=== PATIENT | female | born 1955 | race Caucasian/White ===

== ENCOUNTER → 2020-09-11 10:57 | Outpatient (BNVA) | payer MEDICARE, SELFPAY | PROVIDERS: PCP Internal Medicine; Referring Provider Internal Medicine; Visit Provider Obstetrics & Gynecology | DX: Z76.89 Persons encountering health services in other specified circumstances (principal) ==

== ENCOUNTER 2020-11-26 10:14 | Outpatient (REF) | payer MEDICARE, SELFPAY ==
--- NOTE | 2020-11-26 10:23 | XR_ITS ---
EXAMINATION: XR CHEST CLINICAL INFORMATION: Tobacco use COMPARISON: None TECHNIQUE: 2 views of the chest were obtained. FINDINGS: The cardiac and mediastinal contours are normal. The lungs are clear. There is no pleural effusion or pneumothorax. There are degenerative changes of the spine. XR/XR chest 2V IMPRESSION: Unremarkable examination.
== END 2020-11-26 10:15 | disposition home or self-care (01) ==
LOC: HO.XRAY 10:14
PROVIDERS: PCP Internal Medicine; Visit Provider Internal Medicine
DX: F98.8 Other specified behavioral and emotional disorders with onset usually occurring in childhood and adolescence (principal); Z87.891 Personal history of nicotine dependence
CPT/HCPCS: 71046

== ENCOUNTER 2020-11-27 11:53 | Outpatient (REF) | payer MEDICARE, SELFPAY ==
[2020-11-27 12:40] LABS: MANUAL DIFF FLAG NO
[2020-11-27 12:55] LABS: Basophils Percent Auto 0.8 % (0-2); Eosinophils Absolute Auto 0.1 X10*3/uL (0.0-0.4); Eosinophils Percent Auto 2.3 % (0-4); Hematocrit 40.5 % (37-47); Hemoglobin 13.8 g/dl (12.0-16.0); Imm Gran Abs Auto 0.01 X10*3/uL (0.00-0.03); Imm Gran Pct Auto 0.3 % (0.0-0.4); Lymphocytes Absolute Auto 1.8 X10*3/uL (1.2-4.9); Mean Corpuscular HGB Conc 34.1 g/dl (31.0-35.0); Mean Corpuscular Hemoglobin 32.4 pg (27.0-33.0); Mean Corpuscular Volume 95.1 fL (80-98); Mean Platelet Volume 9.4 fL (9.4-12.3); Monocytes Absolute Auto 0.4 X10*3/uL (0.1-1.2); Monocytes Percent Auto 10.7 % (2-11); Neutrophils Absolute Auto 1.6 X10*3/uL (2.0-8.3); Neutrophils Percent Auto 39.9 % (45-73); Platelet Count 386 X10*3/uL (160-400); Red Blood Count 4.26 X10*6/uL (4.20-5.50); Red Cell Distribution Width 12.2 % (11.0-16.0); White Blood Count 3.9 X10*3/uL (4.8-10.8)
[2020-11-27 13:27] LABS: Alanine Aminotransferase 16 U/L (0-31); Albumin Level 4.4 g/dL (3.5-5.0); Alkaline Phosphatase 71 U/L (39-117); Anion Gap 12 (12-20); Aspartate Amino Transferase 15 U/L (5-31); Bilirubin Total 0.4 mg/dL (0.0-1.0); Blood Urea Nitrogen 14 mg/dL (9-16); Calcium 9.3 mg/dL (8.4-10.2); Carbon Dioxide 29 mmol/L (22-29); Chloride 104 mmol/L (96-108); Cholesterol 168 mg/dL; Estimated Glomerular Filt Rate > 60; Glucose Fasting 99 mg/dL (60-99); Potassium 4.4 mmol/l (3.3-5.1); Sodium 141 mmol/L (135-145); Total Protein 6.5 g/dL (6.5-8.0)
== END 2020-11-27 11:54 | disposition home or self-care (01) ==
LOC: HO.LAB 11:53
PROVIDERS: PCP Internal Medicine; Visit Provider Internal Medicine
DX: Z87.891 Personal history of nicotine dependence (principal)
CPT/HCPCS: 36415; 80053; 82465; 85025

== ENCOUNTER 2021-03-04 08:23 | Outpatient (REF) | payer MEDICARE, SELFPAY ==
--- NOTE | ~2021-03-04 | XR_ITS ---
EXAMINATION: XR HAND, RIGHT CLINICAL INFORMATION: Pain. Osteoarthritis. COMPARISON: Previous x-ray February 2018 TECHNIQUE: PA, lateral, and oblique views of the right hand. FINDINGS: Bone alignment is normal. No fracture or dislocation is seen. There is arthritis at the IP joints and first MCP joint with joint space narrowing and osteophyte formation. Soft tissues are unremarkable. XR/XR hand RT min 3V IMPRESSION: Osteoarthritis at the IP joints and first MCP joint.
--- NOTE | ~2021-03-04 | MM_ITS ---
EXAMINATION: MM SCREENING DIGITAL BREAST TOMOSYNTHESIS, BILATERAL CLINICAL INFORMATION: Screening. Asymptomatic. The lifetime risk of breast cancer based on the Tyrer-Cuzick Model is 8%. COMPARISON: Mammography: 08/04/2019, 06/16/2018, 05/06/2017 TECHNIQUE: Digital mammography is performed in craniocaudal and mediolateral oblique views along with computer-aided detection (CAD). Digital breast tomosynthesis is performed in implant-displaced craniocaudal and implant-displaced mediolateral oblique views along with computer-aided detection (CAD). Synthesized 2D images are generated from the tomosynthesis. Additional left implant displaced MLO view is provided. FINDINGS: There are scattered areas of fibroglandular density (ACR BI-RADS breast composition Category b). There are no significant masses, abnormal calcifications, or other abnormalities. The implant contours are similar to prior studies. Parenchymal pattern is similar to prior exams. There are no significant changes. MM/MM tomosynthesis screen imp BI IMPRESSION: No mammographic evidence of malignancy. ASSESSMENT: BI-RADS 1: Negative RECOMMENDATION: Routine annual mammography screening. This patient's information was entered into a reminder system with a target due date for their next mammogram.
== END 2021-03-04 08:24 | disposition home or self-care (01) ==
LOC: HO.MAMMO 08:23
PROVIDERS: PCP Internal Medicine; Visit Provider Internal Medicine
DX: Z12.31 Encounter for screening mammogram for malignant neoplasm of breast (principal); M19.041 Primary osteoarthritis, right hand
CPT/HCPCS: 73130; 77063; 77067

== ENCOUNTER 2021-11-05 17:17 | Outpatient (REF) | payer MEDICARE, SELFPAY ==
[2021-11-06 08:05] LABS: HBS Num1 16.06 mIU/mL (0-7.99); ~Hepatitis B Surface Antibody REACTIVE (Nonreactive)
[2021-11-07 05:11] LABS: Mumps Virus IgG Antibody >300.00 AU/mL; Rubeola IgG (Measles) >300.00 AU/mL
== END 2021-11-05 17:18 | disposition home or self-care (01) ==
LOC: HO.LAB 17:17
PROVIDERS: PCP Internal Medicine; Visit Provider Internal Medicine
DX: Z02.1 Encounter for pre-employment examination (principal); Z28.3 Underimmunization status
CPT/HCPCS: 36415; 86706; 86735; 86762; 86765; 86787

== ENCOUNTER 2022-10-24 12:25 | Outpatient (REF) | payer MEDICARE, SELFPAY ==
--- NOTE | ~2022-10-24 | MM_ITS ---
EXAMINATION: MM SCREENING DIGITAL BREAST TOMOSYNTHESIS, BILATERAL CLINICAL INFORMATION: Screening. Asymptomatic. Family history breast cancer, mother The lifetime risk of breast cancer based on the Tyrer-Cuzick Model is 8%. COMPARISON: Mammography: 03/04/2021, 08/04/2019 TECHNIQUE: Digital mammography is performed in craniocaudal and mediolateral oblique views along with computer-aided detection (CAD). Digital breast tomosynthesis is performed in implant-displaced craniocaudal and implant-displaced mediolateral oblique views along with computer-aided detection (CAD). Synthesized 2D images are generated from the tomosynthesis. FINDINGS: There are scattered areas of fibroglandular density (ACR BI-RADS breast composition Category b). There are bilateral implants. The implant contours are smooth and similar to prior studies. Parenchymal pattern is similar to prior exams. There is no interval developing density or architectural abnormality, significant mass, or abnormal calcifications. The axilla and skin contours are unremarkable. No significant changes. MM/MM tomosynthesis screen imp BI IMPRESSION: No mammographic evidence of malignancy. ASSESSMENT: BI-RADS 1: Negative RECOMMENDATION: Routine annual mammography screening. This patient's information was entered into a reminder system with a target due date for their next mammogram.
== END 2022-10-24 12:26 | disposition home or self-care (01) ==
LOC: HO.MAMMO 12:25
PROVIDERS: PCP Internal Medicine; Visit Provider Internal Medicine
DX: Z12.31 Encounter for screening mammogram for malignant neoplasm of breast (principal)
CPT/HCPCS: 77063; 77067

== ENCOUNTER 2023-01-31 09:53 | Outpatient (REF) | payer MEDICARE, MEDICAID, SELFPAY ==
[2023-01-31 10:09] LABS: MANUAL DIFF FLAG NO
[2023-01-31 10:36] LABS: Basophils Percent Auto 0.7 % (0-2); Eosinophils Absolute Auto 0.1 X10*3/uL (0.0-0.4); Eosinophils Percent Auto 2.3 % (0-4); Hematocrit 40.6 % (37.0-47.0); Hemoglobin 13.9 g/dl (12.0-16.0); Imm Gran Abs Auto 0.02 X10*3/uL (0.00-0.03); Imm Gran Pct Auto 0.5 % (0.0-0.4); Lymphocytes Absolute Auto 1.9 X10*3/uL (1.2-4.9); Lymphocytes Percent Auto 44.7 % (20-40); Mean Corpuscular HGB Conc 34.2 g/dl (31.0-35.0); Mean Corpuscular Volume 93.5 fL (80.0-98.0); Mean Platelet Volume 9.5 fL (9.4-12.3); Monocytes Absolute Auto 0.5 X10*3/uL (0.1-1.2); Monocytes Percent Auto 12.6 % (2-11); Neutrophils Absolute Auto 1.7 x10*3/uL (2.0-8.3); Neutrophils Percent Auto 39.2 % (45-73); Platelet Count 357 X10*3/uL (160-400); Red Blood Count 4.34 X10*6/uL (4.20-5.50); Red Cell Distribution Width 11.9 % (11.0-16.0); White Blood Count 4.3 X10*3/uL (4.8-10.8)
[2023-01-31 11:00] LABS: Alanine Aminotransferase 17 U/L (0-31); Albumin Level 4.1 g/dL (3.5-5.0); Alkaline Phosphatase 80 U/L (39-117); Anion Gap 13 (12-20); Aspartate Amino Transferase 17 U/L (5-31); Bilirubin Total 0.6 mg/dL (0.0-1.0); Blood Urea Nitrogen 26 mg/dL (9-16); Calcium 9.5 mg/dL (8.4-10.2); Carbon Dioxide 26 mmol/L (22-29); Chloride 106 mmol/L (96-108); Cholesterol 155 mg/dL; Estimated Glomerular Filt Rate > 60; Glucose Fasting 97 mg/dL (60-99); HDL Cholesterol 55 mg/dL; LDL Cholesterol Calculated 85 mg/dl; Potassium 4.4 mmol/L (3.3-5.1); Sodium 141 mmol/L (135-145); Total Protein 6.2 g/dL (6.5-8.0); Triglycerides 79 mg/dL
== END 2023-01-31 09:54 | disposition home or self-care (01) ==
LOC: HO.LAB 09:53
PROVIDERS: PCP Internal Medicine; Visit Provider Internal Medicine
DX: Z00.00 Encounter for general adult medical examination without abnormal findings (principal); M54.9 Dorsalgia, unspecified; R10.9 Unspecified abdominal pain; M25.50 Pain in unspecified joint; Z87.891 Personal history of nicotine dependence
CPT/HCPCS: 36415; 80053; 80061; 85025

== ENCOUNTER 2023-07-24 14:28 | Outpatient (REF) | payer MEDICARE, SELFPAY ==
[2023-07-24 14:46] LABS: MANUAL DIFF FLAG NO
[2023-07-24 15:30] LABS: Basophils Percent Auto 0.5 % (0-2); Eosinophils Absolute Auto 0.1 X10*3/uL (0.0-0.4); Eosinophils Percent Auto 1.5 % (0-4); Hematocrit 40.5 % (37.0-47.0); Hemoglobin 14.1 g/dl (12.0-16.0); Imm Gran Abs Auto 0.02 X10*3/uL (0.00-0.03); Imm Gran Pct Auto 0.4 % (0.0-0.4); Lymphocytes Absolute Auto 2.1 X10*3/uL (1.2-4.9); Lymphocytes Percent Auto 38.3 % (20-40); Mean Corpuscular HGB Conc 34.8 g/dl (31.0-35.0); Mean Platelet Volume 9.1 fL (9.4-12.3); Monocytes Absolute Auto 0.5 X10*3/uL (0.1-1.2); Monocytes Percent Auto 8.8 % (2-11); Neutrophils Absolute Auto 2.8 x10*3/uL (2.0-8.3); Neutrophils Percent Auto 50.5 % (45-73); Platelet Count 439 X10*3/uL (160-400); White Blood Count 5.5 X10*3/uL (4.8-10.8)
[2023-07-24 16:35] LABS: Lactate Dehydrogenase 213 U/L (122-220)
== END 2023-07-24 14:29 | disposition home or self-care (01) ==
LOC: HO.LAB 14:28
PROVIDERS: PCP Internal Medicine; Visit Provider Internal Medicine
DX: Z13.89 Encounter for screening for other disorder (principal)
CPT/HCPCS: 36415; 83615; 85025

== ENCOUNTER 2024-01-01 06:32 | Day surgery (SDC) | payer MEDICARE, SELFPAY ==
[2023-12-30 07:17] VITALS: BMI 23.6
--- NOTE | 2023-12-31 12:18 | HO.ANESPROP2 ---
Documented by User: Keira Hernandez NP 12/31/23 12:19 HPI - Anesthesia Eval Consult details Narrative: 68yo F for Colonoscopy PMFSH Past Medical History Medical History (Updated 12/30/23 @ 07:13 by Gina Aleman RN) HTN (hypertension) ADHD Degenerative disc disease Arthritis Family History Family History Mother Breast cancer Surgical History Surgical History (Updated 01/01/24 @ 06:46 by Sammie Mo) H/O colonoscopy History of cone biopsy of cervix History of breast augmentation History of foot surgery Social History Social History Alcohol intake: current Alcohol intake frequency: holidays/special occasions only Patient Tobacco Use Status: Former Tobacco user Quit Date: 2019 Tobacco use type: Cigarette Years Smoked: 2 Smoked in Last 30 Days: No Use of substances other than those prescribed or required for medical reasons: Yes Substance Use Type Other:: THC edible Substance Use Frequency: Occasionally Are you DNR?: No Advance Directives: No Advance Directives Information Provided: Yes Sexual orientation: Straight/Heterosexual Gender identity: Female Meds Allergies Allergy/AdvReac Type Severity Reaction Status Date / Time penicillin G [Penicillin G] Allergy Severe DIFFICULTY Verified 01/01/24 06:41 BREATHING Home Medications Medication Instructions Recorded Confirmed Last Taken Type dextroamphetamine-amphetamine 10 10 mg PO BID 09/11/20 01/01/24 Unknown History mg tablet (Adderall) ibuprofen 200 mg tablet (Advil) 400 mg PO Q8H 09/11/20 01/01/24 10/09/23 History melatonin 5 mg capsule 5 mg PO DAILY PRN Sleep 09/11/20 01/01/24 Unknown History magnesium oxide 300 mg PO DAILY 12/30/23 01/01/24 Unknown History multivitamin 1 tab PO DAILY 12/30/23 01/01/24 Unknown History vitamin A 2,400 mcg capsule 4,800 mcg PO DAILY 12/30/23 01/01/24 Unknown History vitamin E mixed 1,000 unit capsule 1,000 unit PO DAILY 12/30/23 01/01/24 Unknown History Exam Height,Weight and Vital Signs: Height 5 ft 3 in Weight 60.328 kg Assessment and Plan Assessment Anesthesia Assessment: Chart Reviewed Documented by User: Sid Oro MD 01/01/24 07:30 PMFSH Past Medical History Medical History (Updated 12/30/23 @ 07:13 by Gina Aleman RN) HTN (hypertension) ADHD Degenerative disc disease Arthritis Family History Family History Mother Breast cancer Family history of problems with anesthesia: No Surgical History Surgical History (Updated 01/01/24 @ 06:46 by Sammie Mo) H/O colonoscopy History of cone biopsy of cervix History of breast augmentation History of foot surgery History of Problems with Anesthesia: No Social History Social History Alcohol intake: current Alcohol intake frequency: holidays/special occasions only Patient Tobacco Use Status: Former Tobacco user Quit Date: 2019 Tobacco use type: Cigarette Years Smoked: 2 Smoked in Last 30 Days: No Use of substances other than those prescribed or required for medical reasons: Yes Substance Use Type Other:: THC edible Substance Use Frequency: Occasionally Are you DNR?: No Advance Directives: No Advance Directives Information Provided: Yes Sexual orientation: Straight/Heterosexual Gender identity: Female Meds Allergies Allergy/AdvReac Type Severity Reaction Status Date / Time penicillin G [Penicillin G] Allergy Severe DIFFICULTY Verified 01/01/24 06:41 BREATHING Home Medications Medication Instructions Recorded Confirmed Last Taken Type dextroamphetamine-amphetamine 10 10 mg PO BID 09/11/20 01/01/24 Unknown History mg tablet (Adderall) ibuprofen 200 mg tablet (Advil) 400 mg PO Q8H 09/11/20 01/01/24 10/09/23 History melatonin 5 mg capsule 5 mg PO DAILY PRN Sleep 09/11/20 01/01/24 Unknown History magnesium oxide 300 mg PO DAILY 12/30/23 01/01/24 Unknown History multivitamin 1 tab PO DAILY 12/30/23 01/01/24 Unknown History vitamin A 2,400 mcg capsule 4,800 mcg PO DAILY 12/30/23 01/01/24 Unknown History vitamin E mixed 1,000 unit capsule 1,000 unit PO DAILY 12/30/23 01/01/24 Unknown History Exam Airway Mallampati Class: I TM Dist: >3cm Neck ROM: Full Loose/Missing/Broken Teeth: No Heart: ok Lungs: ok Assessment and Plan Assessment Anesthesia Assessment: Anesthesia Plan Discussed Final Anesthetic Review Family History of Problems with Anesthesia: No History of Problems with Anesthesia: No NPO: Yes ASA Class: II Final Preanesthetic Review: No Changes in Pt Med Stat, Meds/Allgs Chart Reviewed, Consent Obtained/Reviewed and Anes Risks/Benef Reviewed Patient Risk: Low Procedure Risk: Low Anesthetic Plan Anesthetic Plan: MAC: and Agree w/ Assess. and Plan Disposition: Standard PACU
[2024-01-01 06:46] VITALS: BP 111/75; PULSE 57; RESP 16; TEMP 36.5; O2SAT 100; BMI 23.5
[2024-01-01] MEDS: Lactated Ringers 1,000 ML 100 ML IVCONT (07:04)
--- NOTE | 2024-01-01 07:31 | P.HPSUR_ITS ---
Pre-Procedural Eval Section A - 24 Hr Update-Section A only Date of Service: 01/01/24 Section B - Complete if H&P > 30 days Chief Complaint: screening Details of Present Illness: see H&P no changes Relevant Family History (Specify if Yes): No Relevant Social History: None Present Medications: see Short Stay Collaborative assessment Medical History: No relevant PMH History of Previous Operations: No relevant previous surgery Allergies: Allergies Allergy/AdvReac Type Severity Reaction Status Date / Time penicillin G [Penicillin G] Allergy Severe DIFFICULTY Verified 01/01/24 06:41 BREATHING Review of Systems Sugical H&P ROS: Negative: Constitution, Cardiovascular, Respiratory, Neurological, Psychiatric, Hem-Onc, Allergic/Immunologic, Gastrointestinal, Genitourinary, Musculoskeletal, Integumentary, Endocrine and Eyes/Ears/N ose/Throat Exam Surgical H&P Exam: Normal: HEENT, Normal: Heart, Normal: Lungs, Normal: Extremities, Normal: Abdomen, Normal: Skin and Normal: Neurological Plan Diagnosis/Plan: Unchanged I have reviewed the history and physical and performed a pertinent physical examination on my patient. No changes have occurred unless specified. Time Spent With Patient Time: Total time managing care of this patient today ____ minutes.
[2024-01-01 08:10] VITALS: BP 83/47; PULSE 43; RESP 16; TEMP 37; O2SAT 96
--- NOTE | 2024-01-01 08:28 | OP_ITS ---
DATE OF SERVICE: 01/01/2024 SURGEON: Jesse Plummer MD INDICATIONS: Colon cancer screening. PREOPERATIVE DIAGNOSIS: POSTOPERATIVE DIAGNOSIS: PROCEDURE PERFORMED: Colonoscopy to the terminal ileum. ESTIMATED BLOOD LOSS: COMPLICATIONS: ANESTHESIA: Monitored anesthesia care. ASSISTANTS: SPECIMENS: DESCRIPTION OF PROCEDURE: A history and physical performed. The risks and benefits of the procedure were explained to the patient. Informed consent was obtained. The patient was placed in the left lateral decubitus position. A digital rectal exam was performed and was found to be normal. The Olympus pediatric video colonoscope was introduced into the rectum and advanced to the cecum. The cecum was identified by transillumination, palpation, and identification of ileocecal valve. Examination was performed. The scope was removed. She tolerated the procedure well and was turned recovery room in stable condition. FINDINGS: The terminal ileum was not examined. The visualized colonic mucosa was normal. The quality of prep was excellent. No polyps were identified. Retroflexed examination was normal. IMPRESSION: Normal colonoscopy. RECOMMENDATION: 1. Follow up as needed. 2. Repeat colonoscopy is recommended in 5 years because of family history of colon cancer. MD JUNI Wellington/HOA / [phone]
[2024-01-01 08:32] VITALS: BP 98/65; PULSE 51; RESP 18; TEMP 36.1; O2SAT 99
== END 2024-01-01 08:50 | disposition home or self-care (01) ==
PROVIDERS: PCP Internal Medicine; Visit Provider Internal Medicine Gastroenterology
PROC: 0DJD8ZZ Inspection of Lower Intestinal Tract, Via Natural or Artificial Opening Endoscopic (ICD-10-PCS; CPT 45378; principal; 2024-01-01 07:30)
DX: Z12.11 Encounter for screening for malignant neoplasm of colon (principal); Z80.0 Family history of malignant neoplasm of digestive organs; Z86.010 Personal history of colon polyps; K59.00 Constipation, unspecified; I10 Essential (primary) hypertension; F90.9 Attention-deficit hyperactivity disorder, unspecified type; Z79.899 Other long term (current) drug therapy; Z88.0 Allergy status to penicillin; Z98.86 Personal history of breast implant removal; Z87.891 Personal history of nicotine dependence
CPT/HCPCS: G0105; J2704

== ENCOUNTER 2024-03-22 08:07 | Outpatient (REF) | payer MEDICARE, SELFPAY ==
--- NOTE | ~2024-03-22 | MM_ITS ---
EXAMINATION: MM SCREENING DIGITAL BREAST TOMOSYNTHESIS, BILATERAL WITH BREAST IMPLANTS. CLINICAL INFORMATION: Screening. Asymptomatic. COMPARISON: Mammography: This study is compared with prior mammograms dating back to 2019. TECHNIQUE: Digital mammography is performed in craniocaudal and mediolateral oblique views along with computer-aided detection (CAD). Digital breast tomosynthesis is performed in implant-displaced craniocaudal and implant-displaced mediolateral oblique views along with computer-aided detection (CAD). Synthesized 2D images are generated from the tomosynthesis. FINDINGS: There are scattered areas of fibroglandular density (ACR BI-RADS breast composition Category b). There are mammographically intact, retroglandular, silicone breast implants. There are no significant masses, abnormal calcifications, or other abnormalities. MM/MM tomosynthesis screen imp BI IMPRESSION: There are no significant changes from prior study. ASSESSMENT: BI-RADS BI-RADS 1 - Negative RECOMMENDATION: Routine annual mammography screening. 1 year F/U This patient's information was entered into a reminder system with a target due date for their next mammogram.
== END 2024-03-22 08:08 | disposition home or self-care (01) ==
LOC: HO.MAMMO 08:07
PROVIDERS: PCP Internal Medicine; Visit Provider Internal Medicine
DX: Z12.31 Encounter for screening mammogram for malignant neoplasm of breast (principal)
CPT/HCPCS: 77063; 77067

== ENCOUNTER → 2024-03-22 08:15 | Outpatient (BNV) | payer MEDICARE, SELFPAY | PROVIDERS: PCP Internal Medicine; Visit Provider Radiology Diagnostic Radiology | DX: Z12.31 Encounter for screening mammogram for malignant neoplasm of breast (principal) | CPT/HCPCS: 77063; 77067 ==

== ENCOUNTER 2024-07-19 10:26 | Outpatient (AMB) | payer MEDICARE, SELFPAY ==
[2024-07-19 10:38] VITALS: BP 144/90; PULSE 60; O2SAT 98; BMI 24.6
--- NOTE | 2024-07-19 10:38 | MHC.OFFVIS ---
Vital Signs 07/19/24 10:38 Height 5 ft 2.5 in Weight 136 lb 10.986 oz BMI 24.6 BP 144/90 H Blood Pressure Location Lt brachial Position Sitting Pulse 60 Pulse Source Pulse Oximeter Pulse Oximetry (%) 98 Oxygen Delivery Method Room Air Intake Visit Reasons: hx of tobacco use Equipment Cleaner And Tester Required: No Allergies penicillin G [Penicillin G] Allergy (Severe, Verified 07/19/24 10:40) DIFFICULTY BREATHING HPI Comments Details: The patient is here for pulmonary evaluation. The patient is a maile 68 year woman with a history of smoking who presents with minimal symptoms. She had been having a cough and she did have a chest x-ray and there was a question of COPD and history. Her last chest x-ray that was back in 2020. I did personally reviewed without any significant findings. The patient does not use any inhalers in time. She does walk on a regular basis. Although she used to run now is difficult for her to run. Therefore, will be reasonable to perform pulmonary function studies specially with her decreasing exercise capacity and also wears smoking history. The patient does not benefit from inhalers since time although we will reassess after me pulmonary function studies. Will also plan to repeat a chest x-ray at this time. Otherwise the patient is without complaints. [facility] Medical History (Updated 07/19/24 @ 21:27 by Som Riojas MD) Dyspnea Tobacco dependence HTN (hypertension) ADHD Degenerative disc disease Arthritis Surgical History (Updated 01/01/24 @ 06:46 by Sammie Mo RN) H/O colonoscopy History of cone biopsy of cervix History of breast augmentation History of foot surgery Family History Mother Breast cancer Social History Alcohol intake: current Alcohol intake frequency: holidays/special occasions only Patient Tobacco Use Status: Former Tobacco user Tobacco use type: Cigarette Years Smoked: 2 Sexual orientation: Straight/Heterosexual Gender identity: Female Review of Systems Const Denies fever(s) ENT Reports no additional complaints Card Denies chest pain and Reports dyspnea on exertion Resp Reports dyspnea on exertion and Denies wheezing GI Reports no additional complaints Musc Reports no additional complaints Skin/Breast Denies rash Aller/Immun Denies wheezing Physical Exam Vital Signs: Last Vital Signs Pulse 60 07/19/24 10:38 BP 144/90 H 07/19/24 10:38 Pulse Ox 98 07/19/24 10:38 Oxygen Delivery Method Room Air 07/19/24 10:38 BMI result Body Mass Index 24.6 Const General: comfortable HEENT Head: Yes normocephalic Neck Neck: Yes supple Chest Chest palpation & inspection: normal inspection of the chest Resp Effort & Inspection: normal respiratory effort Auscultation: diminished lung sounds Cardio Heart sounds: S1 normal heart sound present and S2 normal heart sound present GI Palpation (GI): Soft to palpation Skin General skin exam: no rashes or lesions noted Extrem General: Yes no clubbing, cyanosis or edema Assessment & Plan Assessment & Plan (1) Dyspnea: Code(s): R06.00 - Dyspnea, unspecified Category: Medical Qualifiers: Dyspnea type: dyspnea on exertion Qualified Code(s): R06.09 - Other forms of dyspnea (2) Tobacco dependence: Code(s): F17.200 - Nicotine dependence, unspecified, uncomplicated Category: Medical Plan PFTs LDCT referral F/U 3-4 months Orders: Orders PFT pulmonary function test Today R06.09 - Other forms of dyspnea Coding Level of Care Code New Pt Level 4 (73409) Diagnoses Dyspnea on exertion R06.09 Dyspnea type: dyspnea on exertion Tobacco dependence F17.200 Time Spent (min) 30
== END 2024-07-19 10:53 | disposition home or self-care (01) ==
PROVIDERS: PCP Internal Medicine; Visit Provider Hospitalist
DX: R06.09 Other forms of dyspnea (principal); F17.200 Nicotine dependence, unspecified, uncomplicated
CPT/HCPCS: 99204

== ENCOUNTER → 2024-07-19 10:26 | Outpatient (BNVA) | payer MEDICARE, SELFPAY | PROVIDERS: PCP Internal Medicine; Visit Provider Hospitalist | DX: R06.09 Other forms of dyspnea (principal); F17.210 Nicotine dependence, cigarettes, uncomplicated | CPT/HCPCS: 99202 ==

== ENCOUNTER 2024-08-09 13:05 | Outpatient (REF) | payer MEDICARE, SELFPAY ==
[2024-08-09 13:23] LABS: MANUAL DIFF FLAG NO
[2024-08-09 14:01] LABS: Basophils Percent Auto 0.6 % (0-2); Eosinophils Absolute Auto 0.1 X10*3/uL (0.0-0.4); Eosinophils Percent Auto 1.3 % (0-4); Hematocrit 40.7 % (37.0-47.0); Imm Gran Abs Auto 0.02 X10*3/uL (0.00-0.03); Imm Gran Pct Auto 0.4 % (0.0-0.4); Lymphocytes Absolute Auto 1.6 X10*3/uL (1.2-4.9); Lymphocytes Percent Auto 34.7 % (20-40); Mean Corpuscular HGB Conc 34.4 g/dl (31.0-35.0); Mean Corpuscular Hemoglobin 32.2 pg (27.0-33.0); Mean Corpuscular Volume 93.6 fL (80.0-98.0); Mean Platelet Volume 9.5 fL (9.4-12.3); Monocytes Absolute Auto 0.5 X10*3/uL (0.1-1.2); Monocytes Percent Auto 9.6 % (2-11); Neutrophils Absolute Auto 2.5 x10*3/uL (2.0-8.3); Neutrophils Percent Auto 53.4 % (45-73); Platelet Count 371 X10*3/uL (160-400); Red Blood Count 4.35 X10*6/uL (4.20-5.50); Red Cell Distribution Width 12.2 % (11.0-16.0); White Blood Count 4.7 X10*3/uL (4.8-10.8)
[2024-08-09 14:29] LABS: Alanine Aminotransferase 16 U/L (0-31); Albumin Level 4.2 g/dL (3.5-5.0); Alkaline Phosphatase 72 U/L (39-117); Anion Gap 11 (12-20); Aspartate Amino Transferase 14 U/L (5-31); Bilirubin Total 0.5 mg/dL (0.0-1.0); Blood Urea Nitrogen 18 mg/dL (9-16); Calcium 9.7 mg/dL (8.4-10.2); Carbon Dioxide 28 mmol/L (22-29); Chloride 108 mmol/L (96-108); Cholesterol 167 mg/dL (<200); Estimated Glomerular Filt Rate > 60; Glucose Fasting 90 mg/dL (60-99); HDL Cholesterol 61 mg/dL (>40); LDL Cholesterol Calculated 86 mg/dL (<100); Potassium 4.3 mmol/L (3.3-5.1); Sodium 143 mmol/L (135-145); Total Protein 6.8 g/dL (6.5-8.0); Triglycerides 102 mg/dL (<150)
[2024-08-09 14:44] LABS: Vitamin D 25-OH Total 51.6 ng/mL (>30)
== END 2024-08-09 13:06 | disposition home or self-care (01) ==
LOC: HO.LAB 13:05
PROVIDERS: PCP Internal Medicine; Visit Provider Internal Medicine
DX: I25.10 Atherosclerotic heart disease of native coronary artery without angina pectoris (principal); Z87.891 Personal history of nicotine dependence; Z86.0100 Personal history of colon polyps, unspecified
CPT/HCPCS: 36415; 80053; 80061; 82306; 85025

== ENCOUNTER 2025-02-23 13:59 | Outpatient (AMB) | payer MEDICARE, SELFPAY ==
[2025-02-23 14:03] VITALS: BP 138/90; PULSE 60; RESP 16; TEMP 36.4; O2SAT 99; BMI 24.3
--- NOTE | 2025-02-23 14:03 | MHC.PC.OV ---
Vital Signs 02/23/25 14:03 Height 5 ft 2.5 in Weight 135 lb BMI 24.3 BP 138/90 H Respiration 16 Pulse 60 Pulse Source Pulse Oximeter Temp 97.6 F Temp Source Temporal Artery Scan Pulse Oximetry (%) 99 Oxygen Delivery Method Room Air Intake Visit Reasons: Routine Geodetic Surveyor Required: No Accompanied by: Self / Same As Patient Allergies penicillin G [Penicillin G] Allergy (Severe, Verified 02/23/25 14:03) DIFFICULTY BREATHING Tobacco use date assessed: 02/23/25 Fall risk assessment: No Falls in past year Last assessed Fall Risk: 02/23/25 Dental Screening Dental Screen Date: 02/23/25 Did you have a dental visit in the last 12 months?: Yes Did you have a dental problem in the last 6 months where you did not have access to dental care?: No Was dental information given to patient?: Patient has dentist HPI HPI Comments History of Present Illness Details the patient is a 69 year old female with a past medical history of ADD, anxiety, insomnia, tobacco use, colon polyps, back pain history of breast implant presenting for follow up. Last seen Aug BH: On adderall 10mg twice daily would like to increased to 15mg bid. History of tobacco use. Saw pulmonary but does not need follow up History of bilateral breast implants. Is having a lot of breast pain, low back pain. Her breasts are now size G Colonoscopy 12/2023-5 years. Family history of colon cancer Mammo: UTD. History of bilateral breast implants. ROS CONSTITUTIONAL: Denies weight loss, fever and chills. HEENT: Denies changes in vision and hearing. RESPIRATORY: Denies SOB and cough. CV: Denies palpitations and CP GI: Denies abdominal pain, nausea, vomiting and diarrhea. : Denies dysuria and urinary frequency. MSK: Denies new myalgia and joint pain. SKIN: Denies rash and pruritus. NEUROLOGICAL: Denies headache PSYCHIATRIC: Denies recent changes in mood. PHYSICAL EXAM: GENERAL: Alert and oriented x 3. NAD EYES: EOMI. Anicteric. HENT: Moist mucous membranes. No scleral icterus. No cervical lymphadenopathy. LUNGS: Clear to auscultation bilaterally. CARDIOVASCULAR: Regular rate and rhythm. No murmur. No JVD. ABDOMEN: Soft, non-tender +bs EXTREMITIES: No edema. Non-tender. SKIN: No rashes or lesions. Warm. NEUROLOGIC: No focal neurological deficits. CN II-XII grossly intact PSYCHIATRIC: Cooperative. Appropriate mood and affect ON LICENSE OF [facility] Medical History Dyspnea Tobacco dependence HTN (hypertension) ADHD Degenerative disc disease Arthritis Surgical History H/O colonoscopy (~01/01/24) History of cone biopsy of cervix History of breast augmentation History of foot surgery Family History Mother Breast cancer Social History Housing: House Alcohol intake: current Alcohol intake frequency: holidays/special occasions only Patient Tobacco Use Status: Former Tobacco user Tobacco use type: Cigarette Years Smoked: 2 service: No Current occupational status: employed Sexual orientation: Straight/Heterosexual Gender identity: Female Cognitive needs: No Hearing needs: No Vision needs: Yes (rx contacts/glasses) Questionnaire PHQ-9 Over the last 2 weeks, how often have you been bothered by any of the following problems? 1. Little interest or pleasure in doing things: not at all 2. Feeling down, depressed, or hopeless: not at all 3. Trouble falling or staying asleep, or sleeping too much: not at all 4. Feeling tired or having little energy: not at all 5. Poor appetite or overeating: not at all 6. Feeling bad about yourself - or that you are a failure or have let yourself or your family down: not at all 7. Trouble concentrating on things, such as reading the newspaper or watching television: not at all 8. Moving or speaking so slowly that other people could have noticed. Or the opposite - being so fidgety or restless that you have been moving around a lot more than usual: not at all 9. Thoughts that you would be better off or of hurting yourself in some way: not at all Total score: 0 Depression Screening Interpretation: Negative Depression Screening Done: Yes 75351 - PHQ-9 Billing: Yes Source: Developed by Drs. Eugene Salmeron, Olamide Vito Jones and colleagues, with an educational nancy from [email or web address]. Thrive Questionnaire Date Thrive assessed: 02/23/25 I am a: Patient What is your living situation today?: I have a steady place to live Within the past 12 months, did the food you bought not last and you didn't have the money to get more?: Never true Within the past 12 months, did you worry whether your food would run out before you got money to buy more?: Never true Do you have trouble paying for medicines?: No Do you have trouble getting transportation to medical appointments?: No Do you have trouble paying your heating and electricity bill?: No Do you have trouble taking care of your child, family member or friend?: No Do you have trouble with day-to-day activities such as bathing, preparing meals, shopping, managing finances, etc.?: No Are you currently unemployed and looking for a job?: No Are you interested in more education?: No Please select the resources that you would like help with: None THRIVE Score: 0 AUDIT C Alcohol Use Questionnaire (AUDIT-C) 1. How often do you have a drink containing alcohol?: Monthly or less 2. How many drinks containing alcohol do you have on a typical day when you are drinking?: 1 or 2 3. How often do you have six or more drinks on one occasion?: Never Total Score: 1 MIGNON-7 AMB Questionnaire MIGNON-7 Date MIGNON - 7 assessed: 02/23/25 Feeling nervous, anxious, or on edge: 0 = Not at all Not being able to stop or control worryin = Not at all Worrying too much about different things: 0 = Not at all Trouble relaxin = Not at all Being so restless that it is hard to sit still: 0 = Not at all Becoming easily annoyed or irritable: 0 = Not at all Feeling afraid as if something awful might happen: 0 = Not at all Total MIGNON-7 score (0-4 normal; 5-9 mild; 10-14 moderate; 15-21 severe): 0 Source: Developed by Drs. Eugene Salmeron, Vito Bray and colleagues, with an educational nancy from [email or web address]. Physical exam (Primary Care) Vital Signs: Last Vital Signs Temp 97.6 F 02/23/25 14:03 Pulse 60 02/23/25 14:03 Resp 16 02/23/25 14:03 BP 138/90 H 02/23/25 14:03 Pulse Ox 99 02/23/25 14:03 Oxygen Delivery Method Room Air 02/23/25 14:03 BMI result Body Mass Index 24.3 Tobacco/Smoking Status: Tobacco use Status Tobacco use date assessed 02/23/25 02/23/25 14:06 Patient Tobacco Use Status Former Tobacco user 02/23/25 14:06 Tobacco use type Cigarette 02/23/25 14:06 PHQ-9: PHQ-9 Score PHQ-9: Total score 0 02/23/25 14:23 Depression Screening Interpretation: Negative Thrive Assessment: Date of Thrive Assessment Date Thrive assessed 02/23/25 02/23/25 14:06 Coding Level of Care Code New Pt Level 4 (47192) Diagnoses Attention deficit disorder, unspecified type F98.8 Attention deficit type: unspecified type Primary hypertension I10 Hypertension type: primary hypertension History of breast implant Z98.82 Additional Codes PHQ-9 - 63435 - PHQ-9 Billing: Yes ([id number]) Assessment & Plan Assessment & Plan (1) ADD (attention deficit disorder): Code(s): F98.8 - Other specified behavioral and emotional disorders with onset usually occurring in childhood and adolescence Category: Medical Qualifiers: Attention deficit type: unspecified type Qualified Code(s): F98.8 - Other specified behavioral and emotional disorders with onset usually occurring in childhood and adolescence (2) HTN (hypertension): Code(s): I10 - Essential (primary) hypertension Category: Medical Qualifiers: Hypertension type: primary hypertension Qualified Code(s): I10 - Essential (primary) hypertension (3) History of breast implant: Code(s): Z98.82 - Breast implant status Category: Surgical Plan 69 year old to establish care ADD-increase adderall 15 bid HTN-stable off medications consider breast reduction Orders: Orders Complete Blood Count Auto Diff 02/23/25 F98.8 - Other specified behavioral and emotional disorders with onset usually occurring in childhood and adolescence, I10 - Essential (primary) hypertension, R06.09 - Other forms of dyspnea, Z98.82 - Breast implant status Comprehensive Met. Panel 02/23/25 F98.8 - Other specified behavioral and emotional disorders with onset usually occurring in childhood and adolescence, I10 - Essential (primary) hypertension, R06.09 - Other forms of dyspnea, Z98.82 - Breast implant status Lipid Panel 02/23/25 F98.8 - Other specified behavioral and emotional disorders with onset usually occurring in childhood and adolescence, I10 - Essential (primary) hypertension, R06.09 - Other forms of dyspnea, Z98.82 - Breast implant status TSH reflex Free T4 02/23/25 F98.8 - Other specified behavioral and emotional disorders with onset usually occurring in childhood and adolescence, I10 - Essential (primary) hypertension, R06.09 - Other forms of dyspnea, Z98.82 - Breast implant status Medications: New dextroamphetamine-amphetamine 15 mg (Adderall) administer doses at least 4-6 hours apart; Partial Fill upon patient request. ok to fill early 15 mg PO BID 120 tabs 0RF 60 days Discontinued dextroamphetamine-amphetamine 10 mg (Adderall) administer doses at least 4-6 hours apart Discontinued Reason: Doctor's Order 10 mg PO BID 60 days 120 tabs 0RF F98.8 - Other specified behavioral and emotional disorders with onset usually occurring in childhood and adolescence
--- OUTSIDE RECORDS SUMMARY | 2025-02-23 17:04 | XMS_ITS ---
Author Organization [facility] Address [address] [place] [address] Care Team Providers Care Rf Engineer Name Role Phone Gino GUERRIER, Nathanael Primary Care Provider Jesse Moy Jr Unavailable REASON FOR VISIT screening Encounters Encounter Location Date Provider Diagnosis [facility] [address] [place], [place] [id number] 01/01/2024 Jesse Plummer Jr Encounter for screening colonoscopy Z12.11 and Family history of colon cancer Z80.0 Assessments Encounter Date Diagnosis (ICD Code) Assessment Notes Treatment Notes Treatment Clinical Notes Section Notes 01/01/2024 Encounter for screening colonoscopy (ICD-10 - Z12.11) 01/01/2024 Family history of colon cancer (ICD-10 - Z80.0) Plan Of Treatment No Information Progress Notes * ANKIT ECKERTDOB:1955 ( 69 yo F)Acc No.[id number]:01/01/2024 COLON WITH MAC Patient:?ANKIT ECKERT Provider:?Jesse Plummer MD :1955???Age:68 Y???Sex:Female D ate:01/01/2024 Address:[address] [place], [place] [address] [address] [place] Pcp:Nathanael Christian MD Subjective: * Chief Complaints: * ???1. Screening. * Medical History:? Objective: * Vitals:? Assessment: * Assessment: 1.?Encounter for screening c olonoscopy - Z12.11 (Primary)???2.?Family history of colon cancer - Z80.0??? Plan: * Treatment: * Procedure Codes:?40572 DIAGN OSTIC COLONOSCOPY, G0105 COLOREC CANCR SCR; COLNSCPY HI RISK * * The named appointment provid er may or may not be the originator of this progress note, and it is not deemed complete until electronically signed by the appointment provider. Sign off status: Pending * Provider:?Jesse Plummer MD Date:?0 01/01/2024 Generated for Ramone edmondson/Shiela/Velsmitting on:?02/23/2025 05:04 PM EDT
--- OUTSIDE RECORDS SUMMARY | 2025-02-23 17:04 | XMS_ITS | Patient Health Record ---
Author Organization [facility] Address [address] [place] [address] Care Team Providers Care Fruit Raiser Name Role Phone Nathanael Christian MD Primary Care Provider Jesse Moy Jr Unavailable Allergies Allergen (clinical drug ingredient) Drug/Non Drug Allergy documented on EMR Reaction Allergy Type Onset Date Status penicillin G Penicillin G Sodium Unknown Drug Allergy Active Reason For Referral No Information Medications Medication SIG (Take, Route, Frequency, Duration) Notes Start Date End Date Status Magnesium 300 MG 1 capsule with a patricia l Orally Once a day for 30 day(s) Active Vitamin A 2400 MCG (8000 UT) 2 capsules with food or milk Orally Once a day for 30 day(s) Active Vitamin E 1000 UNIT as directed Orally Active Adderall 10 MG 1 tablet Orally Twic e a day Active Multivitamin Adult - as directed Orally Active Hair Skin Nails - as directed Orally Active Immunizations Vaccine Route Administration Date Status Comme nts Influenza Unknown 08/04/2019 Refused Influenza Unknown 10/28/2023 Refused Social History Tobacco Use: Social History Observation Description Date Details (start date - stop date) Former Smoker NA - NA Tobacco Use/Smoking Question Answer Notes Patient is a former smoker Alcohol Screen Question Answer Notes Did you have a drink contain ing alcohol in the past year? Yes How often did you have a dri nk containing alcohol in the past year? Never (0 point) How many drinks did you have on a typical day when you were drinking in the past year? 1 or 2 drinks (0 point) How often did you have 6 or more drinks on one occasion in the past year? Never (0 point) Points 0 Interpretation Negative Problems Problem Type SNOMED Code ICD Code Onset Dates Problem Status W/U Status Risk Notes Problem 192376630 Colon cancer screening (Z12.11) Active confirmed Problem 72781942 Constipation, unspecified constipation type (K59.00) Active confirmed Problem 783320088 Long-term curren t use of high risk medication other than anticoagulant (Z79.899) Active confirmed Problem 85178177 Incontinence of feces, unspecified fecal incontinence type (R15.9) Active confirmed Plan Of Treatment Future Test Test Name Order Date COLONOSCOPY 08/04/2019 COLONOSCOPY 10/28/2023 Insurance Providers Payer Name Payer Address Payer Phone Subscriber Number Group Number Insured Name Patient Relationship to Insured Coverage Start Date Coverage End Date [facility] Medicare Advantage Plan [address] [address] [place] [address] [id number] ANKIT ECKERT Self - patient is the insured Medical (General) History Medical History History ICD Code ADHD Hypertension, stress related Colonoscopy 11/16/19, no polyp s, previous history of tubular adenomas, three-year followup due to prep limitations. Surgical History Surgery Date(Month/Year) breast implant 2008 bunions right and right and left 95
--- OUTSIDE RECORDS SUMMARY | 2025-02-23 17:05 | XMS_ITS ---
Author Organization [facility] Address [address] [place] [address] Care Team Providers Care Blow Molding Machine Operator Name Role Phone Nathanael Christian MD Primary Care Provider Jesse Moy Jr Unavailable Allergies Allergen (clinical drug ingredient) Drug/Non Drug Allergy documented on EMR Reaction Allergy Type Onset Date Status penicillin G Penicillin G Sodium Unknown Drug Allergy Active REASON FOR VISIT Patient presents today for a screening colonoscopy Medications Medication SIG (Take, Route, Frequency, Duration) Notes Start Date End Date Status Vitamin E 1000 UNIT as directed Orally Active Adderall 10 MG 1 tablet Orally Twic e a day Active Multivitamin Adult - as directed Orally Active Hair Skin Nails - as directed Orally Active Magnesium 300 MG 1 capsule with a patricia l Orally Once a day for 30 day(s) Active Vitamin A 2400 MCG (8000 UT) 2 capsules with food or milk Orally Once a day for 30 day(s) Active Immunizations Vaccine Route Administration Date Status Comme nts Influenza Unknown 10/28/2023 Refused Social History Tobacco [...] Problem Status W/U Status Risk Notes Problem 72460313 Constipation, unspecified constipation type (K59.00) Active confirmed Problem 25750380 Incontinence of feces, unspecified fecal incontinence type (R15.9) Active confirmed Vital Signs Temperature 97.1 degrees Fahrenheit 10/28/20 23 Blood pressure systolic 000 mm Hg 10/28/20 23 Blood pressure diastolic 00 mm Hg 023 Height 63 in 10/28/2023 Weight 133 lb 6 oz lbs 10/28/2023 BMI 23.62 kg/m2 10/28/2023 Encounters Encounter Location Date Provider Diagnosis [facility] [address] [place] [address] 10/28/2023 Jesse Plummer Jr Colon cancer screening Z12.11 ; Constipation, unspecified constipation type K59.00 ; Incontinence of feces, unspecified fecal incontinence type R15.9 and Long-term current use of high risk medication other than anticoagulant Z79.899 Assessments Encounter Date Diagnosis (ICD Code) Assessment Notes Treatment Notes Treatment Clinical Notes Section Notes 10/28/2023 Colon cancer screening (ICD-10 - Z12.11) We discussed constipation and rectal leakage today. She may be having a little bit a postobstructive issues with her chronic constipation. We recommended a high-fiber diet and MiraLax as needed. She will be scheduled for colonoscopy for further evaluation. She is aware risks and benefits and agrees to proceed. She is advised to stop supplements one week before the procedure. 10/28/2023 Constipation, unspecified constipation type (ICD-10 - K59.00) Colonoscopy material was printed We discussed constipation and rectal leakage today. She may be having a little bit a postobstructive issues with her chronic constipation. We recommended a high-fiber diet and MiraLax as needed. She will be scheduled for colonoscopy for further evaluation. She is aware risks and benefits and agrees to proceed. She is advised to stop supplements one week before the procedure. 10/28/2023 Incontinence of feces, unspecified fecal incontinence type (ICD-10 - R15.9) We discussed constipation and rectal leakage today. She may be having a little bit a postobstructive issues with her chronic constipation. We recommended a high-fiber diet and MiraLax as needed. She will be scheduled for colonoscopy for further evaluation. She is aware risks and benefits and agrees to proceed. She is advised to stop supplements one week before the procedure. 10/28/2023 Long-term current use of high risk medication other than anticoagulant (ICD-10 - Z79.899) We discussed constipation and rectal leakage today. She may be having a little bit a postobstructive issues with her chronic constipation. We recommended a high-fiber diet and MiraLax as needed. She will be scheduled for colonoscopy for further evaluation. She is aware risks and benefits and agrees to proceed. She is advised to stop supplements one week before the procedure. Plan Of Treatment Treatment Notes Assessment Notes Constipation, unspecified constipation t ype Colonoscopy material was printed Future Test Test Name Order Date COLONOSCOPY 10/28/2023 Progress Notes * ANKIT ECKERTDOB:1955 ( 68 yo F)Acc No.[id number]:10/28/2023 Progress Notes Patient:?ANKIT ECKERT Provider:?Jesse Plummer MD :1955???Age:68 Y???Sex:Female D ate:10/28/2023 Address:[address] [place] [address] [address], [id number] Pcp:Nathanael Christian MD Subjective: * Chief Complaints: * ???1. Patient presents today for a screening colonoscopy. * HPI: ???New symptom(s):? Trip is a pleasant 68-year-old woman seen today in consultation for her preoperative colonoscopy visit. She has no complaints of rectal bleeding. She does get constipated, typically with stress. Over the past year she's noted some liquid leakage with her bowel movements. She has not had to use a pad. She has no rectal bleeding. She has a family history of colon cancer in several primary relatives. ?Her last colonoscopy in November 2019 was limited and three-year followup of a 2 day prep was recommended because of the lack of complete visibility. We reviewed this today. * ROS:?General/Constitutional:?Change in appetite?denies.?Fatigue?denies.?ENT:?Patient denies?difficulty swallowing.?Respiratory:?Patient denies?shortness of breath.?Cardiovascular:?Patient denies?chest pain.?Gastrointestinal:?Comments?See HPI for details.?Genitourinary:?Difficulty urinating?denies.?Incontinence?denies.?Musculoskeletal:?Patient denies?muscle aches.?Skin:?Patient denies?pruritis.?Neurologic:?Patient denies?low back pain.?Psychiatric:?Patient denies?mental or physical abuse.? * Medical History:?ADHD, Hyper tension, stress related, Colonoscopy 11/16/19, no polyps, previous history of tubular adenomas, three-year followup due to prep limitations.. * Surgical History:?breast imp lant 2007, bunions right and right and left . * Hospitalization/Major Diagno stic Procedure:?Denies Past Hospitalization. * Family History:?Father: dece ased, diagnosed with HTN (hypertension).?Mother: alive, diagnosed with HTN (hypertension), Colon polyps.?Paternal Grand Father: , diagnosed with Colon cancer.?Siblings: alive, diagnosed with Colon cancer.? Sister had necrosis of her stomach and passed a year ago. * Social History:?Tobacco Use:?Tobacco Use/Smoking?Patient is a?former smoker.?Drugs/Alcohol:?Alcohol Screen?Did you have a drink containing alcohol in the past year??Yes,?How often did you have a drink containing alcohol in the past year??Never (0 point),?How many drinks did you have on a typical day when you were drinking in the past year??1 or 2 drinks (0 point),?How often did you have 6 or more drinks on one occasion in the past year??Never (0 point),?Points?0,?Interpretation?Negative.?Miscellaneous:?Marital status: . 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 * Medications:?Taking Magnesiu m 300 MG Capsule 1 capsule with a meal Orally Once a day, Taking Vitamin A 2400 MCG (8000 UT) Capsule 2 capsules with food or milk Orally Once a day, Taking Vitamin E 1000 UNIT Capsule as directed Orally , Taking Adderall 10 MG Tablet 1 tablet Orally Twice a day, Taking Multivitamin Adult - Tablet as directed Orally , Taking Hair Skin Nails - Capsule as directed Orally , Discontinued Turmeric 500 MG Capsule as directed Orally , Discontinued MiraLax (colon prep) 8.3 ounce ((238) grams mixed with Gatorade or Crystal Light orally begin at 5:00 p.m. the day before the procedure, Medication List reviewed and reconciled with the patient * Allergies:?Penicillin G Sodi um. Objective: * Vitals:?Wt: 133 lb 6 oz, Ht: 63 in, BMI:23.62 Index, BP: 000/00 mm Hg, Temp: 97.1. * Examination: ???General Examination: ?GENERAL APPEARANCE:?in no acute distress.?HEAD:?normocephalic.?EYES:?sclera non-icteric.?ORAL CAVITY:?mucosa moist.?NECK/THYROID:?no lymphadenopathy.?SKIN:?anicteric.?HEART:?S1, S2 normal, no murmurs.?LUNGS:?clear to auscultation bilaterally.?CHEST:?normal shape and expansion.?ABDOMEN:?soft, nontender, nondistended, bowel sounds present, no organomegaly .?EXTREMITIES:?no clubbing, cyanosis, or edema.?PSYCH:?cognitive function intact.? Assessment: * Assessment: 1.?Constipation, unspecified constipation type - K59.00 (Primary)?2.?Colon cancer screening - Z12.11?3.?Incontinence of feces, unspecified fecal incontinence type - R15.9 4.?Long-term current use of high risk medication other than anticoagulant - Z79.899? We discussed constipation an d rectal leakage today. She may be having a little bit a postobstructive issues with her chronic constipation. We recommended a high- fiber diet and MiraLax as needed. She will be scheduled for colonoscopy for further evaluation. She is aware risks and benefits and agrees to proceed. She is advised to stop supplements one week before the procedure. Plan: * Treatment: 2.?Colon cancer screening?Procedure: COLONOSCOPY (Ordered for 10/28/2023) * Immunizations:? Influenza (Not administered - Refused: Patient decision) * Procedure Codes:?3017F COLOR ECTAL CA SCREEN DOC REV, G9903 Pt scrn tbco id as non user, G9744 PATIENT NOT ELIG D/T ACTIVE DX HTN * Preventive Medicine:? ??Urinary Incontinence:?Urinary Incontinence?Assessment:?Absent,?Plan of care documented:?No, reason not specified.? * * Sign off status: Completed true * Provider:?Jesse Plummer MD Date:?12/29/2022 Generated for Ramone edmondson/Shiela/eTransmitting on:?02/23/2025 05:04 PM EDT History and Physical Notes * HPI (History of Present Illness) Category Sub-Category Detail Notes Category Not es New symptom(s) Trip is a pleasant 68-year-old woman seen today in consultation for her preoperative colonoscopy visit. She has no complaints of rectal bleeding. She does get constipated, typically with stress. Over the past year she's noted some liquid leakage with her bowel movements. She has not had to use a pad. She has no rectal bleeding. She has a family history of colon cancer in several primary relatives. Her last colonoscopy in November 2019 was limited and three-year followup of a 2 day prep was recommended because of the lack of complete visibility. We reviewed this today. Examination Category Sub-Category Detail Notes Category Not es General Examination GENERAL APPEARANCE: in no acute di stress HEAD: normocephalic EYES: sclera non-icteric NECK/THYROID: no lymphadenopathy HEART: S1, S2 normal, no mu rmurs CHEST: normal shape and exp ansion LUNGS: clear to auscultatio n bilaterally ABDOMEN: soft, nontender, non distended, bowel sounds present, no organomegaly SKIN: anicteric EXTREMITIES: no clubbing, cyanosi s, or edema PSYCH: cognitive function i ntact ORAL CAVITY: mucosa moist
== END 2025-02-23 14:37 | disposition home or self-care (01) ==
LOC: HO.HMCHD 14:00
PROVIDERS: PCP Internal Medicine; Visit Provider Internal Medicine
DX: F98.8 Other specified behavioral and emotional disorders with onset usually occurring in childhood and adolescence (principal); I10 Essential (primary) hypertension; Z98.82 Breast implant status

== ENCOUNTER → 2025-02-23 13:59 | Outpatient (BNVA) | payer MEDICARE, SELFPAY | PROVIDERS: PCP Internal Medicine; Visit Provider Internal Medicine | DX: F98.8 Other specified behavioral and emotional disorders with onset usually occurring in childhood and adolescence (principal); I10 Essential (primary) hypertension; Z98.82 Breast implant status; Z79.899 Other long term (current) drug therapy | CPT/HCPCS: 96127; 99202 ==

== ENCOUNTER 2025-04-25 11:49 | Outpatient (REF) | payer MEDICARE, SELFPAY ==
--- OUTSIDE RECORDS SUMMARY | 2025-04-25 13:33 | XMS_ITS | Patient Health Record ---
Author Organization [facility] Address [address] [place] [address] Care Team Providers Care Blade Changer Name Role Phone Nathanael Christian MD Primary Care Provider Jesse Moy Jr Unavailable Allergies Allergen (clinical drug ingredient) Drug/Non Drug Allergy documented on EMR Reaction Allergy Type Onset Date Status Penicillin G Sodium Unknown Drug Allergy Active [...] Problem Status W/U Status Risk Notes Problem [id number] Colon cancer screening (Z12.11) Active confirmed Problem 76065374 Constipation, unspecified constipation type (K59.00) Active confirmed Problem 779702927 Long-term curren t use of high risk medication other than anticoagulant (Z79.899) Active confirmed Problem 39687817 Incontinence of feces, unspecified fecal incontinence type (R15.9) Active confirmed Plan Of Treatment Future Test Test Name Order Date COLONOSCOPY 08/04/2019 COLONOSCOPY 10/28/2023 Insurance Providers Payer Name Payer Address Payer Phone Subscriber Number Group Number Insured Name Patient Relationship to Insured Coverage Start Date Coverage End Date [facility] Medicare Advantage Plan [address] [address] [place] [address] [id number] ANKIT ECKERT Self - patient is the insured Medical (General) History Medical History History ICD Code ADHD Hypertension, stress related Colonoscopy 11/16/19, no polyp s, previous history of tubular adenomas, three-year followup due to prep limitations. Surgical History Surgery Date(Month/Year) breast implant 2007 bunions right and right and left 95
== END 2025-04-25 11:50 | disposition home or self-care (01) ==
LOC: HO.MAMMO 11:49
PROVIDERS: Visit Provider Internal Medicine
DX: Z12.31 Encounter for screening mammogram for malignant neoplasm of breast (principal)
CPT/HCPCS: 77063; 77067

== ENCOUNTER → 2025-04-25 12:00 | Outpatient (BNV) | payer MEDICARE, SELFPAY | PROVIDERS: Visit Provider Internal Medicine | DX: Z12.31 Encounter for screening mammogram for malignant neoplasm of breast (principal) | CPT/HCPCS: 77063; 77067 ==

== ENCOUNTER 2025-09-26 11:03 | Outpatient (AMB) | payer MEDICARE, SELFPAY ==
--- NOTE | 2025-09-26 11:11 | MHC.PC.OV ---
Vital Signs 09/26/25 11:18 09/26/25 11:25 Height 5 ft 0.31 in Weight 129 lb BMI 24.9 BP 124/96 H 124/90 H Blood Pressure Location Rt brachial Rt brachial Position Sitting Sitting Respiration 14 Pulse 54 Pulse Source Pulse Oximeter Temp 98.1 F Temp Source Oral Pulse Oximetry (%) 100 Oxygen Delivery Method Room Air Intake Visit Reasons: follow-up from [address] Intake Note: Follow up Front Maker Lockstitch Required: No Allergies penicillin G (Penicillin G) Allergy (Severe, Verified 09/26/25 11:12) DIFFICULTY BREATHING Tobacco use date assessed: 09/26/25 Fall risk assessment: No Falls in past year Last assessed Fall Risk: 09/26/25 Dental Screening Dental Screen Date: 02/23/25 HPI HPI Comments History of Present Illness Details The patient is a 70 year old female with a past medical history of ADD, anxiety, insomnia, tobacco use, colon polyps, back pain history of breast implant presenting for follow up. BH: On adderall 15mg bid. CSA signed today. BP mildly elevated 124/90. No chest pain, dizziness. Still having trouble sleeping with ambien 5mg daily History of tobacco use. Saw pulmonary but does not need follow up History of bilateral breast implants. Prone to breast pain, low back pain. Colonoscopy 12/2023-5 years. Family history of colon cancer Mammo: 04/2025. History of bilateral breast implants. ROS see HPI PHYSICAL EXAM: GENERAL: Alert and oriented x 3. NAD EYES: EOMI. Anicteric. HENT: Moist mucous membranes. No scleral icterus. No cervical lymphadenopathy. LUNGS: Clear to auscultation bilaterally. CARDIOVASCULAR: Regular rate and rhythm. No murmur. No JVD. ABDOMEN: Soft, non-tender +bs EXTREMITIES: No edema. Non-tender. SKIN: No rashes or lesions. Warm. NEUROLOGIC: No focal neurological deficits. CN II-XII grossly intact PSYCHIATRIC: Cooperative. Appropriate mood and affect [facility] Medical History Dyspnea Tobacco dependence HTN (hypertension) ADHD Degenerative disc disease Arthritis Surgical History H/O colonoscopy (~01/01/24) History of cone biopsy of cervix History of breast augmentation History of foot surgery Family History Mother Breast cancer HTN (hypertension) Brother Substance abuse Brother HTN (hypertension) Colon cancer Other FH: mental illness Social History Housing: House Alcohol intake: current Alcohol intake frequency: holidays/special occasions only Patient Tobacco Use Status: Former Tobacco user Tobacco use type: Cigarette Years Smoked: 2 e-Cigarette/Vaping Use: Currently Using service: No Current occupational status: employed 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 1. Little interest or pleasure in doing things: not at all 2. Feeling down, depressed, or hopeless: not at all 3. Trouble falling or staying asleep, or sleeping too much: more than half the days 4. Feeling tired or having little energy: not at all 5. Poor appetite or overeating: not at all 6. Feeling bad about yourself - or that you are a failure or have let yourself or your family down: not at all 7. Trouble concentrating on things, such as reading the newspaper or watching television: not at all 8. Moving or speaking so slowly that other people could have noticed. Or the opposite - being so fidgety or restless that you have been moving around a lot more than usual: not at all 9. Thoughts that you would be better off or of hurting yourself in some way: not at all Total score: 2 Depression Screening Interpretation: Negative Depression Screening Done: Yes 84539 - PHQ-9 Billing: Yes Source: Developed by Drs. Eugene Salmeron, Olamide Michele, Vito Rodrigues and colleagues, with an educational nancy from [employer]. Thrive Questionnaire Date Thrive assessed: 09/26/25 I am a: Patient What is your living situation today?: I have a steady place to live Within the past 12 months, did the food you bought not last and you didn't have the money to get more?: Never true Within the past 12 months, did you worry whether your food would run out before you got money to buy more?: Never true Do you have trouble paying for medicines?: No Do you have trouble getting transportation to medical appointments?: No Do you have trouble paying your heating and electricity bill?: No Do you have trouble taking care of your child, family member or friend?: No Do you have trouble with day-to-day activities such as bathing, preparing meals, shopping, managing finances, etc.?: No Are you currently unemployed and looking for a job?: No Are you interested in more education?: No Please select the resources that you would like help with: None Currently or been in a relationship where the following occur: No concerns reported THRIVE Score: 0 AUDIT C Alcohol Use Questionnaire (AUDIT-C) 1. How often do you have a drink containing alcohol?: 2-4 times a month 2. How many drinks containing alcohol do you have on a typical day when you are drinking?: 1 or 2 3. How often do you have six or more drinks on one occasion?: Never Total Score: 2 MIGNON-7 AMB Questionnaire MIGNON-7 Date MIGNON - 7 assessed: 09/26/25 Feeling nervous, anxious, or on edge: 0 = Not at all Not being able to stop or control worryin = Not at all Worrying too much about different things: 0 = Not at all Trouble relaxin = Not at all Being so restless that it is hard to sit still: 0 = Not at all Becoming easily annoyed or irritable: 0 = Not at all Feeling afraid as if something awful might happen: 0 = Not at all Total MIGNON-7 score (0-4 normal; 5-9 mild; 10-14 moderate; 15-21 severe): 0 Source: Developed by Drs. Eugene Salmeron, Olamide Michele, Vito Rodrigues and colleagues, with an educational nancy from [employer]. MIGNON-7 Assessment Billing MIGNON-7 Assessment Tool: MIGNON-7 Assessment 19781 Physical exam (Primary Care) BMI result Body Mass Index 24.9 Tobacco/Smoking Status: Tobacco use Status Tobacco use date assessed 09/26/25 09/26/25 11:12 Patient Tobacco Use Status Former Tobacco user 09/26/25 11:12 Tobacco use type Cigarette 09/26/25 11:12 PHQ-9: PHQ-9 Score PHQ-9: Total score 2 09/26/25 11:12 Depression Screening Interpretation: Negative Thrive Assessment: Date of Thrive Assessment Date Thrive assessed 09/26/25 09/26/25 11:12 Currently or been in a relationship where the following occur: No concerns reported Coding Level of Care Code Est Pt Level 4 (26305) Complex EM visit Add On G2211 Diagnoses Attention deficit disorder, unspecified type F98.8 Attention deficit type: unspecified type Primary hypertension I10 Hypertension type: primary hypertension Insomnia, unspecified type G47.00 Insomnia type: unspecified Additional Codes MIGNON-7 Assessment Billing - MIGNON-7 Assessment Tool: MIGNON-7 Assessment 99248 ([id number]) PHQ-9 - 17197 - PHQ-9 Billing: Yes ([id number]) Assessment & Plan Assessment & Plan (1) ADD (attention deficit disorder): Code(s): F98.8 - Other specified behavioral and emotional disorders with onset usually occurring in childhood and adolescence Category: Medical Qualifiers: Attention deficit type: unspecified type Qualified Code(s): F98.8 - Other specified behavioral and emotional disorders with onset usually occurring in childhood and adolescence (2) HTN (hypertension): Code(s): I10 - Essential (primary) hypertension Category: Medical Qualifiers: Hypertension type: primary hypertension Qualified Code(s): I10 - Essential (primary) hypertension (3) Insomnia: Code(s): G47.00 - Insomnia, unspecified Category: Medical Qualifiers: Insomnia type: unspecified Qualified Code(s): G47.00 - Insomnia, unspecified Plan ADD-well controlled on current medications. CSA signed Insomnia-increase zolpidem to 10mg nightly. Discussed recommended female dose of 5mg Preventive measures UTD Orders: Orders Vitamin B12 and Folate Today I10 - Essential (primary) hypertension, R53.83 - Other fatigue Hemoglobin A1c Today I10 - Essential (primary) hypertension, R53.83 - Other fatigue Medications: New zolpidem 10 mg PO BEDTIME PRN 30 tabs 3RF sleep Discontinued zolpidem (Ambien) Discontinued Reason: Doctor's Order 5 mg PO BEDTIME PRN 30 tabs 1RF sleep
[2025-09-26 11:18] VITALS: BP 124/96; PULSE 54; RESP 14; TEMP 36.7; O2SAT 100; BMI 24.9
[2025-09-26 11:25] VITALS: BP 124/90
--- OUTSIDE RECORDS SUMMARY | 2025-09-27 01:22 | XMS_ITS | Clinical Summary ---
Author Organization [facility] Address [address] [place] [phone] Phone Care Team Providers Care Publications Designer Name Role Phone Nathanael Christian MD Primary Care Provider Medications dextroamphetamin e-amphetamine (ADDERALL) 10 mg Tab tablet Take 1 tablet by mouth daily. Active HYDROcodone-acet aminophen (NORCO) 5-325 mg per tablet Take 1 tablet by mouth 2 (two) times a day as needed. 07/10/2017 Active traMADol (ULTRAM) 50 mg tablet 1-2 tab(s) Orally every 6-8 hours as needed for pain Active Immunizations Immunization Administration Dates Next Due COVID-19 (Pre-08/31) Paul Vaccine, [id number], P F 05/03/2021 COVID-19 (Pre-08/31) Moderna Vaccine, mRNA, PF 0 02/08/2022 Influenza Quadrivalent Adjuvanted Preservative F ree IM 11/04/2023 Influenza, Unspecified Formulation 10/29/2022, Family History Medical History Relation Comments Cancer Father 2 Relation Status Comments Father 1 Father 2 Social History Tobacco Use Types Packs/Day Years Used Date Smoking Tobacco: Never Assessed Education Answer Date Recorded Are you interested in more education? Not on pippa e 03/06/2023 Are you concerned about learning? Not on file 03/06/2023 No 03/06/2023 No 03/06/2023 Digital Access Answer Date Recorded No 04/04/2023 No 04/04/2023 Reliable internet access at home? Not on file 04/04/2023 Device with a working camera? Not on file Comments Unknown Sex and Gender Information Value Date Recorded Sex Assigned at Not on file Legal Sex Female 9:52 PM EDT Gender Identity Not on file Sexual Orientation Not on file Last Filed Vital Signs Vital Sign Reading Time Taken Comments Blood Pressure - - Pulse - - Temperature - - Respiratory Rate - - Oxygen Saturation - - Inhaled Oxygen Concentration - - Weight 56.7 kg (125 lb) 07/06/2017 1:57 AM EDT Height 157.5 cm (5' 2 ) 07/06/2017 1:57 AM EDT Body Mass Index 22.86 07/06/2017 1:57 AM EDT Plan of Treatment Health Maintenance Due Date Last Done Comments Adult Td,Tdap Booster 1957 LIPID PANEL 1957 DEPRESSION SCREENING 1969 SMOKING Hx and SMOKELESS TOBACCO SCREENING 1970 HEPATITIS C SCREENING 1975 COLOGUARD 2002 COLONOSCOPY 2002 COLORECTAL CANCER SCREENING 2002 FIT TEST 2002 FOBT 2002 SIGMOIDOSCOPY 2002 VIRTUAL COLONOSCOPY 2002 PNEUMOCOCCAL VACCINES (50+ years) (1 of 1 - PCV) 2007 ZOSTER VACCINES (1 of 2) 2007 MAMMOGRAM 07/05/2017 07/05/2015 OSTEOPOROSIS SCREENING INITI AL (ONE-TIME) 2022 INFLUENZA VACCINE (#1) 2025 , 10/29/2022, 02/08/2022 COVID-19 VACCINE (3 - 2024-2 6 season) 2025 02/08/2022, 05/03/2021 RSV VACCINE (1 - 1-dose 75+ series) 2032 HEPATITIS A VACCINES Aged Out No long er eligible based on patient's age to complete this topic HIB VACCINES Aged Out No longer eligi ble based on patient's age to complete this topic IPV VACCINES Aged Out No longer eligi ble based on patient's age to complete this topic MENINGOCOCCAL VACCINES (ACWY) Aged Out No longer eligible based on patient's age to complete this topic MENINGOCOCCAL VACCINES (B) Aged Out N o longer eligible based on patient's age to complete this topic Medical Devices Not on file Care Teams Publications Designer Relationship Specialty Start Date End Date Nathanael Christian MD [address] [place] [address] [place] [id number] PCP - General 11/12/17 Additional Source Comments The information contained in this document represents components of the legal health record. It is not the complete legal health record.[facility]
== END 2025-09-26 11:42 | disposition home or self-care (01) ==
LOC: HO.HMCFM 11:04
PROVIDERS: PCP Internal Medicine; Visit Provider Internal Medicine
DX: F98.8 Other specified behavioral and emotional disorders with onset usually occurring in childhood and adolescence (principal); I10 Essential (primary) hypertension; G47.00 Insomnia, unspecified

== ENCOUNTER → 2025-09-26 11:03 | Outpatient (BNVA) | payer MEDICARE, SELFPAY | PROVIDERS: PCP Internal Medicine; Visit Provider Internal Medicine | DX: F98.8 Other specified behavioral and emotional disorders with onset usually occurring in childhood and adolescence (principal); I10 Essential (primary) hypertension; G47.00 Insomnia, unspecified; Z13.30 Encounter for screening examination for mental health and behavioral disorders, unspecified; Z79.899 Other long term (current) drug therapy | CPT/HCPCS: 96127; 99212 ==